=== PATIENT | female | born 1970 | race Caucasian/White ===

== ENCOUNTER → 2018-01-30 10:54 | Outpatient (CLI) | payer BC, SELFPAY ==
[2018-01-30 12:35] LABS: Hematocrit 35.3 % (37-47); Hemoglobin 11.8 g/dl (12.0-15.0); Mean Corp Hgb Conc 33.4 g/gl (32-36); Mean Corpuscular Hgb 31.2 pg (27.0-32.0); Mean Corpuscular Volume 93.4 fL (81-99); Mean Platelet Vol. 11.7 fl (6.2-12.0); Platelet Count 248 K/mm3 (150-450); RBC Distribution Width CV 13.6 % (11.6-14.6); RBC Distribution Width SD 44.3 fl (35.1-43.9); Red Blood Count 3.78 M/mm3 (4.2-5.4); White Blood Count 12.3 K/mm3 (4.4-11.0)
[2018-01-30 12:36] LABS: Scan Indicated on CBC? Y/N NO
[2018-01-30 12:52] LABS: hCG Titer Quant., Serum < 1 mIU/mL (<9 non-preg)
[2018-01-30 12:58] LABS: Free T3 2.3 pg/mL (2.18-3.98); T4 Free Direct 0.69 ng/dL (0.76-1.46)
== END ==
PROVIDERS: Visit Provider Obstetrics & Gynecology
DX: N92.4 Excessive bleeding in the premenopausal period (principal)
CPT/HCPCS: 36415; 84439; 84443; 84481; 84702; 85027

== ENCOUNTER 2018-02-11 05:59 | Day surgery (SDC) | payer BC, SELFPAY ==
[2018-02-11 06:46] VITALS: BP 143/77; PULSE 70; RESP 16; TEMP 36.7; O2SAT 97; BMI 35.1
[2018-02-11 06:56] LABS: Internal QC Validated? YES +Cl - CLEAR BKGD; Pregnancy, Urine Negative Negative
--- NOTE | 2018-02-11 07:24 | PCM.DC.D&C ---
Discharge Diet: No Restrictions Discharge Activity: May not drive while taking narcotic pain medications., May Shower, May Take a Tub Bath Return to work on:: 02/13/18 May resume sexual activity in: 1 week Call your doctor if you observe: Fever of 101 or Higher, Inability to have a bowel movement, Using more than one pad per hour, Uncontrolled pain Allergies/Adverse Reactions: Allergies aspartame Allergy (Verified 02/10/18 15:45) Other MIGRAINES Penicillins [PCN] Allergy (Verified 02/10/18 15:44) Other Medications to take at Discharge Cholecalciferol (Vitamin D3) [Vitamin D3] 2,000 unit PO DAILY 02/10/18 Levothyroxine [Synthroid] 75 mcg PO DAILY 02/10/18 Oxycodone [Oxyir] 5 mg PO Q6H PRN PRN 3 Days #10 tablet 02/11/18 Polyethylene Glycol 3350 [Miralax] 17 gm PO DAILY PRN #14 packet 02/11/18 The following prescriptions were given: Oxycodone [Oxyir] 5 mg PO Q6H PRN PRN 3 Days #10 tablet PRN Reason: Mod-Severe Pain (4-10/10) Polyethylene Glycol 3350 [Miralax] 17 gm PO DAILY PRN #14 packet PRN Reason: Constipation Primary Care Physician: Frida Rebollar DO [Primary Care Provider] - Test Results: Test results from this visit will be discussed in further detail at your follow-up appointment, if applicable. Please Follow Up With: Indu Au MD - [phone] When: in two weeks for postoperative appointment Proposed Discharge Date: 02/11/18
--- NOTE | 2018-02-11 07:28 | DCINST_ITS ---
Discharge Diet: No Restrictions Discharge Activity: May not drive while taking narcotic pain medications., May Shower, May Take a Tub Bath Return to work on:: 02/13/18 May resume sexual activity in: 1 week Call your doctor if you observe: Fever of 101 or Higher, Inability to have a bowel movement, Using more than one pad per hour, Uncontrolled pain Allergies/Adverse Reactions: Allergies aspartame Allergy (Verified 02/10/18 15:45) Other MIGRAINES Penicillins [PCN] Allergy (Verified 02/10/18 15:44) Other Medications to take at Discharge Cholecalciferol (Vitamin D3) [Vitamin D3] 2,000 unit PO DAILY 02/10/18 Levothyroxine [Synthroid] 75 mcg PO DAILY 02/10/18 Oxycodone [Oxyir] 5 mg PO Q6H PRN PRN 3 Days #10 tablet 02/11/18 Polyethylene Glycol 3350 [Miralax] 17 gm PO DAILY PRN #14 packet 02/11/18 The following prescriptions were given: Oxycodone [Oxyir] 5 mg PO Q6H PRN PRN 3 Days #10 tablet PRN Reason: Mod-Severe Pain (4-10/10) Polyethylene Glycol 3350 [Miralax] 17 gm PO DAILY PRN #14 packet PRN Reason: Constipation Primary Care Physician: Frida Rebollar DO [Primary Care Provider] - Test Results: Test results from this visit will be discussed in further detail at your follow- up appointment, if applicable. Please Follow Up With: Indu Au MD - [phone] When: in two weeks for postoperative appointment Proposed Discharge Date: 02/11/18
--- NOTE | 2018-02-11 07:30 | UTC_PTH ---
PATIENT: MARIA DE JESUS SEGURA LOC: [facility] – [place] U#:[id number] AGE/SX: 47/F ROOM: RE02/11/[address]: Dr. Indu Au MD : 1970 BED: DIS: 02/11/2018 SPEC #: [id number] RECD: 02/11/18 08:33 STATUS: ANABELLA TOÑA #: [id number] JUSTIN: 02/11/18 07:[address]: Indu Au DEPT: SURGICAL PATHOLOGY RECD BY: Eileen Garcia ENTERED: 02/11/18 10:23 SP TYPE: DE CUR TIA DR: Dr. Frida Rebollar, DO Tissues: A - Endometrium, NOS B - Uterine cervix, NOS Procedures: Surgery Specimen Level IV HEADER OPERATION: Hysteroscopy, D & C, Symphion, polypectomy PRE-OP DIAGNOSIS: Thickened endometrial stripe TISSUE SUBMITTED: A - Endometrial curettings, B - Uterine curettings - possible polyp MICROSCOPIC DIAGNOSIS A. Endometrial curettings: Simple cystic and focal complex endometrial hyperplasia without atypia. Fragments of benign endocervical mucosa and blood clots. See comment. B. Uterine curettings: Simple cystic and focal complex endometrial hyperplasia without atypia. See comment. SJ:rg 02/12/18 COMMENT A & B. A few fragments consistent with endometrial polyps are also noted. Case has been reviewed in consultation with Dr. Rios who concurs with the above diagnosis. IDC:AM MICROSCOPIC DESCRIPTION Slides are reviewed. GROSS DESCRIPTION A - Received in fixative is one container labeled with the patient's name and designated endometrial curettings. The specimen consists of multiple irregular fragments of wolf hemorrhagic soft tissue mixed with blood clot that in aggregate measure 7.5 x 0.3 x 0.6 cm. The entire specimen is submitted in six cassettes. B - Received in fixative is one container labeled with the patient's name and designated uterine curettings, possible polyp. The specimen consists of multiple irregular fragments of wolf soft tissue mixed with blood clot that in aggregate measure 5 x 3 x 0.3 cm. The specimen is totally submitted in two cassettes. / SRIDHAR:quynh 02/11/18 TC:5 CPT: 73066 x2
[2018-02-11] MEDS: Lubricating Jelly 60 GM Tube 30 GM TOPICAL (07:42)
[2018-02-11 08:19] VITALS: BP 119/90; BP 143/77; PULSE 72; RESP 16; TEMP 36.2; O2SAT 91
[2018-02-11 08:30] VITALS: BP 123/81; BP 143/77; PULSE 73; RESP 16; O2SAT 98
[2018-02-11 08:39] LABS: Bacteria 0 SEEN /hpf (None Seen); Mucous, Urine 0 SEEN /hpf (<or=2+); Squamous Epithelial Cells - UA 0 SEEN /hpf (5-10); White Blood Cells 0 SEEN /hpf (0-5)
[2018-02-11 08:45] VITALS: BP 122/78; BP 143/77; PULSE 71; RESP 14; O2SAT 97
[2018-02-11 09:01] VITALS: BP 127/77; BP 143/77; PULSE 72; RESP 16; O2SAT 95
[2018-02-11 09:09] LABS: Color, Urine Straw (Yellow); Glucose, Dipstick Normal (Normal); Ketone-Dipstick Negative (Negative); Leukocyte Esterase-Dipstick Negative /ul (Negative); Nitrite-Dipstick Negative (Negative); Occult Blood-Urine 10 /ul (Negative); Protein-Dipstick Negative (Negative); Specific Gravity, Urine 1.005 (1.002-1.030); Urine Bilirubin Dipstick Negative (Negative); Urine Clarity Sl. Cloudy (Clear); Urine Urobilinogen Normal (Normal)
[2018-02-11 09:15] LABS: Red Blood Cells-Urine 0-5 SEEN /hpf (0-5)
[2018-02-11] MEDS: Acetaminophen 500 MG Tablet PO (09:25)
[2018-02-11 09:55] VITALS: BP 143/77
--- NOTE | 2018-02-11 12:28 | PCM.OP.BLANK ---
Problem List (1) Menorrhagia, premenopausal Status: Acute (2) Thickened endometrium Status: Acute Operative Report Date of Procedure: 02/11/18 PROCEDURE: Hysteroscopy, Dilation and curettage, Endometrial polypectomy (Symphion) Preoperative Diagnosis: Thickened endometrial stripe on pelvic ultrasound 2.5 cm Menorrhagia Excessive bleeding in premenopause Hypothyroidism Postop diagnosis: Thickened endometrial stripe on pelvic ultrasound 2.5 cm Menorrhagia Excessive bleeding in premenopause Hypothyroidism Anesthesia: General Dr. Carcamo Surgeon: Indu Au MD EBL: Minimal for case, less than 100 cc Drains: Red [place], clear yellow urine. Sent for UA C and S as pt with CC of bloody urine and L back pain preop. Complications: none Fluids: replacement Findings: parous cervix Very fluffy appearing endometrium. D and C required for any visualization Tubal ostia visualized Defect at R uterine fundus cw adenomyosis. Endometrial polyp toward L lower uterine segment. Narrative account After the R,B,Alternatives of the procedure were reviewed with the patient , informed consent was obtained. The patient was taken to the operating room with an IV running and placed in dorsal supine position of the operating table. She was given general anesthesia and repositioned to the dorsal lithotomy position and prepped and draped in the usual sterile fashion. A graves speculum was placed into the vagina and the cervix was brought into view. The cervix was parous appearing and did not require dilation. A single toothed tenaculum was applied to the anterior lip of the cervix. The hysteroscope was inserted through the cervix into the endometrial cavity. There was a very fluffy appearing endometrium and poor visualization. A sharp curettage was performed and tissue removed and set aside for later pathology review. There was loss of fluid around the hysteroscope due to patulous cervix. a second single toothed tenaculum was applied to seal the cervix better. The hysteroscopy was then performed with findings noted as above. There was an endometrial polyp noted. Polypectomy using the Symphion resectoscope was performed, followed by sharp curettage . Multiple pieces of tissue were withdrawn and set aside for later pathology review. The hysteroscope was again inserted and confirmed that the polyp was removed. Both tubal ostia were visualized and the endometrial canal appeared normal then. One final pass was conducted with the sharp curette tip advanced through the cervix to the uterine fundus . Excellent hemostasis was noted. The single toothed tenaculum was removed from the cervix and a RayTec was used to remove any remaining tissue and blood from the upper vagina and cervix. The procedure was terminated. The speculum was removed. The patient was returned to dorsal supine position and awakened from general anesthesia and transferred to her recovery room bed in stable condition after tolerating the procedure well. Sponge, lap, needle and instrument counts were correct x two. For medications given intraoperatively , see the anesthesia record.
== END 2018-02-11 10:00 | disposition home or self-care (01) ==
LOC: SDC 06:00 → AC 06:03
PROVIDERS: Family Provider Internal Medicine; PCP Internal Medicine; Referring Provider Obstetrics & Gynecology; Visit Provider Obstetrics & Gynecology
PROC: 0UB98ZZ Excision of Uterus, Via Natural or Artificial Opening Endoscopic (ICD-10-PCS; CPT 58558; principal; 2018-02-11 07:15)
DX: N85.01 Benign endometrial hyperplasia (principal); N92.4 Excessive bleeding in the premenopausal period; R93.89 Abnormal findings on diagnostic imaging of other specified body structures; E03.9 Hypothyroidism, unspecified; Q61.5 Medullary cystic kidney
CPT/HCPCS: 58558; 81001; 81025; 87086; 88305; J7120; J2405

== ENCOUNTER → 2018-03-11 13:35 | Outpatient (CLI) | payer BC, SELFPAY ==
[2018-03-13 11:59] LABS: HPV Reflexed? NOT INDICATED
== END ==
PROVIDERS: Family Provider Internal Medicine; PCP Internal Medicine; Referring Provider Obstetrics & Gynecology; Visit Provider Obstetrics & Gynecology
DX: Z12.4 Encounter for screening for malignant neoplasm of cervix (principal)
CPT/HCPCS: 88175; G0145

== ENCOUNTER 2018-03-24 10:04 | Day surgery (SDC) | payer BC, SELFPAY ==
[2018-03-11 13:33] LABS: Hematocrit 38.1 % (37-47); Hemoglobin 12.8 g/dl (12.0-15.0); Mean Corp Hgb Conc 33.6 g/gl (32-36); Mean Corpuscular Hgb 31.5 pg (27.0-32.0); Mean Corpuscular Volume 93.8 fL (81-99); Mean Platelet Vol. 11.9 fl (6.2-12.0); Platelet Count 258 K/mm3 (150-450); RBC Distribution Width CV 13.1 % (11.6-14.6); RBC Distribution Width SD 43.4 fl (35.1-43.9); Red Blood Count 4.06 M/mm3 (4.2-5.4); White Blood Count 12.6 K/mm3 (4.4-11.0)
[2018-03-11 13:37] LABS: Scan Indicated on CBC? Y/N NO
[2018-03-11 13:49] LABS: Prothrombin Time (Protime)PT. 12.9 SECONDS (11.7-14.9)
[2018-03-11 13:50] LABS: Partial Thromboplast Time 30.7 Seconds (24.1-36.2)
[2018-03-11 13:53] LABS: Creatinine, Serum 0.72 mg/dL (0.55-1.02); EST Glomerular Filtration Rate 92 mL/min (>60); Est Glom Filt Rate - Afr Amer 112 mL/min (>60)
--- NOTE | 2018-03-23 14:50 | HP.PCM_ITS ---
History and Physical Date of Admission: 03/24/18 Date: 03/11/2018 Name: MARIA DE JESUS SEGURA Age: 47 Date of : 1970 HISTORY OF PRESENT ILLNESS: PT is a 47 yo female, G-8 P-7 here today for her preop appt. PT LMP was approx Nov 2017 and was having continuous bleeding until 2 wks after her D and C done in February. PT denies any other problems or concerns at this time. PT signed consents for surgery. PT is scheduled for LAVH/BS on 03/24/2018. dg -- As above. Had recent hysteroscopy D and C for thickened endometrium and was diagnosed with simple endometrial hyperplasia without atypia and focal complex endometrial hyperplasia without atypia. Reviewed options for treatment at her postop check and elects to proceed with hysterectomy for treatment of this as well as mild uterine prolapse. EB ALLERGIES: Pcn, Does not work MEDICATIONS HISTORY: Current medications prescribed by our practice are: 1. Synthroid 75 mcg tablet, 1 po daily REVIEW OF SYSTEMS: GENERAL - Denies fever, or chills SKIN - Denies skin changes EYES - Denies visual changes EARS - Denies difficulty hearing NOSE - Denies nasal congestion or bleeding MOUTH - Denies sore throat or difficulty swallowing NECK - Denies pain or swelling RESPIRATORY - Denies shortness of breath or wheezing CARDIOVASCULAR - Denies palpitations or chest pain GASTROINTESTINAL - Denies nausea, vomiting, diarrhea, constipation GENITOURINARY - irregular bleeding, clots, cramping MUSCULOSKELETAL - back pain NEUROLOGICAL - Denies localized numbness, weakness, or tingling PSYCHIATRIC - [place], Irritable ENDOCRINE - denies heat or cold intolerance or weight loss or gain HEMATO-IMMUNOLOGIC - Denies excesive bleeding with cuts PAST HISTORY: Breast/Ovarian/Colon Cancers - Denies Infections - CHICKENPOX A CHILD Illnesses - Hypothyroidism Accidents - no injuries of consequence History of Abnormal PAPS - Denies Hospitalizations - Childbirth SURGICAL HISTORY: 1. 02/11/2018 hysteroscopy, D and C, Symphion polypectomy Indu Au M.D. 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 Illicit Drug Use - denies use of street drugs Sexual Activity - Hours Worked - 40 Spouse-Sig Other Name - LUCIA Spouse-Sig Other Occupation - [employer] Children Name(s) - FAIZA, LUCIA, ELIZ, Crystal, ' Paramjit Haque , Tacho Metz 11 Control - condoms PHYSICAL EXAMINATION BP- 118/78 Sitting, Right arm, large cuff Weight- 208.00 lbs Height- 64.75 inch BMI:34.95 CONSTITUTIONAL - NAD, well nourished, and well developed HEENT - Normocephalic, PERRLA, EOMI NECK - no nuchal rigidity LUNGS - clear to auscultation CARDIAC - normal s1, normal s2, no s3 BREAST - no dominant masses, no tenderness, no axillary adenopathy, no nipple discharge and no skin changes ABDOMEN - no masses, no tenderness EXTREMITIES - No edema or calf tenderness NEUROLOGICAL - Cranial nerves II-XII grossly intact PSYCHIATRIC - A and O to time, place, person, mood and affect DETAILED PELVIC EXAM External Genitial Vagina - non-tender without lesions Urethra/Urethral Meatus - non-tender Bladder - non-tender Vagina - vaginal hernandez are pink and moist without loss of rugae and no evidence of atropy Cervix - without cervical motion tenderness and has normal size and features without evident lesions and MINIMAL descent noted. Uterus - 5-6 cm in size, mobile and nontender Adnexa - clear without masses or tenderness Rectal - deferred ASSESSMENT: 1. Benign Endometrial Hyperplasia, Excessive Bleeding In The Premenopausal Pe riod and Neoplasm Of Uncertain Behavior Of Uterus PLAN BY DIAGNOSIS: 1. Benign Endometrial Hyperplasia, Excessive Bleeding In The Premenopausal Period and Neoplasm Of Uncertain Behavior Of Uterus Reviewed path results and operative findings. Advised re options for further treatment. Declined medical management prefers to proceed with hysterectomy. Recommend: LAVH, bilateral salpingectomy. +/- oophorectomy. Reviewed R,B,A of surgery and discussed anticipated preop, operative and postop recovery including activity restrictions. All questions answered to her satisfaction. Consents signed and on chart. Proceed with surgery as scheduled. RTO In 2 wk for postop check up after hysterectomy. The visit was approximately 20 minutes in length with most of the time spent in discussion and counseling.
[2018-03-24] VITALS (9 sets, daily range): BP systolic 110–156; BP diastolic 54–94; PULSE 66–93; RESP 16–18; TEMP 36.2–36.9; O2SAT 94–100; BMI 36.0
[2018-03-24 10:32] LABS: Internal QC Validated? YES +Cl - CLEAR BKGD; Pregnancy, Urine Negative Negative
--- NOTE | 2018-03-24 12:00 | UT_PTH ---
PATIENT: MARIA DE JESUS SEGURA LOC: [facility] – [place] U#:[id number] AGE/SX: 47/F ROOM: RE03/24/[address]: Dr. Indu Au MD : 1970 BED: DIS: 03/25/2018 SPEC #: [id number] RECD: 03/24/18 15:05 STATUS: ANABELLA REHakan #: [id number] JUSTIN: 03/24/18 12:[address]: Indu Au DEPT: SURGICAL PATHOLOGY RECD BY: Dickson Viramontes ENTERED: 03/25/18 10:19 SP TYPE: UTERUS OTHR DR: Dr. Frida Rebollar, Tissues: Uterus, NOS Procedures: Surgery Specimen Level V HEADER OPERATION: Laparoscopic assisted vaginal hysterectomy, bilateral salpingo-oophorectomy PRE-OP DIAGNOSIS: Benign endometrial hyperplasia, excessive bleeding, neoplasm uncertain behavior uterus TISSUE SUBMITTED: Uterus, bilateral fallopian tubes and ovaries MICROSCOPIC DIAGNOSIS Uterus, bilateral tubes and ovaries: Cervix - mild chronic cystic cervicitis with tunnel cluster formation. Endometrium - mildly disordered proliferative endometrium. Myometrium - focal adenomyosis. Bilateral fallopian tubes - no pathologic diagnosis. Bilateral ovaries - physiologic follicular cysts. Paratubal cyst. SJ:quynh 03/26/18 COMMENT Please make reference to previous specimen ([id number]) endometrial curettings and uterine curettings with diagnosis of simple cystic and focal complex hyperplasia without atypia. MICROSCOPIC DESCRIPTION Slides are reviewed. GROSS DESCRIPTION Received in fixative is one container labeled with the patient's name and designated uterus, bilateral fallopian tubes and ovaries. The specimen consists of a hysterectomy specimen in multiple pieces consisting of uterus, cervix, bilateral ovaries and fallopian tubes. The largest piece of uterus shows bilateral attached fallopian tubes and attached one ovary. Also present in the container is a detached second ovary. Pieces of uterus and cervix weigh in aggregate 258 gm. The detached cervix measures 4 x 3.5 x 1.5 cm. Also present in the container is a second piece of cervix consisting of proximal portion of cervix measuring 4 x 4 x 2 cm. The detached pieces of uterus measure in aggregate 14 x 11 x 6 cm. The distal cervix shows focal ectocervical mucosa which appears focally congested. The external os is oval and patulous in contour. The portion endocervical canal in both pieces measures in aggregate 3.5 cm in length and the endocervical mucosa appears unremarkable. The largest piece of uterus measures 11 x 5 x 3.5 cm. Two larger pieces show focal area of endometrial lining. The endometrial cavity in these pieces up to measures 4.5 cm in length and up to 3 cm in width. The endometrium appears focally congested without any mass lesion and 0.1 cm in thickness. Sections of the uterine wall do not reveal any mass lesion. The uterine wall measures up to 4 cm in thickness. One of the fallopian tubes measure 6.5 cm in length and up to 1 cm in diameter. The fimbrial end is identified. The detached ovary measures 3.5 x 2 x 2 cm. Sections reveal a collapsed cyst measuring 1.5 cm in greatest dimension. The second fallopian tube measures 6 cm in length and up to 0.8 cm in diameter. The fimbrial end is identified. A paratubal cyst is noted measuring 3 cm in greatest dimension. The paratubal cyst is filled with clear fluid. The cyst wall is without any papillation. Sections of fallopian tube reveal unremarkable cut surfaces. The adjacent soft to cystic ovary measures 4 x 3 x 2 cm. Sections reveal a hemorrhagic cyst measuring 4.5 cm in greatest dimension. 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 / SRIDHAR:quynh 03/25/18 TC:5 CPT: 08120
--- NOTE | 2018-03-24 12:14 | PCM.DC.VHY ---
Discharge Diet: No Restrictions Discharge Activity: May not drive while taking narcotic pain medications., May Shower, May Take a Tub Bath Return to work on:: 05/11/18 May resume sexual activity in: 4-6 weeks Call your doctor if your incision/area has: Increased Pain/ Swelling, Increased Redness Call your doctor if you observe: Fever of 101 or Higher, Inability to urinate, Inability to have a bowel movement, Using more than one pad per hour Change Dressing in (Days):: 7 Remove Dressing in (days):: 7 Allergies/Adverse Reactions: Allergies aspartame Allergy (Verified 03/18/18 14:06) Other MIGRAINES Penicillins [PCN] Allergy (Verified 03/18/18 14:06) Other Medications to take at Discharge Cholecalciferol (Vitamin D3) [Vitamin D3] 2,000 unit PO DAILY 02/10/18 Levothyroxine [Synthroid] 75 mcg PO DAILY 02/10/18 Polyethylene Glycol 3350 [Miralax] 17 gm PO DAILY PRN #14 packet 02/11/18 Albuterol Sulfate [Proventil Hfa] 2 puff IH Q6H PRN PRN 03/18/18 Budesonide/Formoterol 160/4.5 [Symbicort 160/4.5 Mcg Inhaler (SP)] 2 puff INHALATION BID PRN PRN 03/18/18 Vitamin B Complex 2 each PO DAILY 03/18/18 Docusate Sodium [Colace] 100 mg PO BID #30 capsule 03/24/18 Naproxen [Naprosyn] 250 - 500 mg PO TID PRN PRN #30 tablet 03/24/18 Oxycodone HCl/Acetaminophen [Percocet 5-325] 1 - 2 tablet PO Q6H PRN PRN 7 Days #20 tablet 03/24/18 The following prescriptions were given: Oxycodone HCl/Acetaminophen [Percocet 5-325] 1 - 2 tablet PO Q6H PRN PRN 7 Days #20 tablet PRN Reason: Moderate Pain Naproxen [Naprosyn] 250 - 500 mg PO TID PRN PRN #30 tablet PRN Reason: Mild-Mod Pain (1-5/10) Docusate Sodium [Colace] 100 mg PO BID #30 capsule Primary Care Physician: Frida Rebollar DO [Primary Care Provider] - Test Results: Test results from this visit will be discussed in further detail at your follow-up appointment, if applicable. Please Follow Up With: Indu Au MD - [phone] When: In two weeks for postoperative appointment
--- NOTE | 2018-03-24 12:19 | DCINST_ITS ---
Discharge Diet: No Restrictions Discharge Activity: May not drive while taking narcotic pain medications., May Shower, May Take a Tub Bath Return to work on:: 05/11/18 May resume sexual activity in: 4-6 weeks Call your doctor if your incision/area has: Increased Pain/ Swelling, Increased Redness Call your doctor if you observe: Fever of 101 or Higher, Inability to urinate, Inability to have a bowel movement, Using more than one pad per hour Change Dressing in (Days):: 7 Remove Dressing in (days):: 7 Allergies/Adverse Reactions: Allergies aspartame Allergy (Verified 03/18/18 14:06) Other MIGRAINES Penicillins [PCN] Allergy (Verified 03/18/18 14:06) Other Medications to take at Discharge Cholecalciferol (Vitamin D3) [Vitamin D3] 2,000 unit PO DAILY 02/10/18 Levothyroxine [Synthroid] 75 mcg PO DAILY 02/10/18 Polyethylene Glycol 3350 [Miralax] 17 gm PO DAILY PRN #14 packet 02/11/18 Albuterol Sulfate [Proventil Hfa] 2 puff IH Q6H PRN PRN 03/18/18 Budesonide/Formoterol 160/4.5 [Symbicort 160/4.5 Mcg Inhaler (SP)] 2 puff INHALATION BID PRN PRN 03/18/18 Vitamin B Complex 2 each PO DAILY 03/18/18 Docusate Sodium [Colace] 100 mg PO BID #30 capsule 03/24/18 Naproxen [Naprosyn] 250 - 500 mg PO TID PRN PRN #30 tablet 03/24/18 Oxycodone HCl/Acetaminophen [Percocet 5-325] 1 - 2 tablet PO Q6H PRN PRN 7 Days #20 tablet 03/24/18 The following prescriptions were given: Oxycodone HCl/Acetaminophen [Percocet 5-325] 1 - 2 tablet PO Q6H PRN PRN 7 Days #20 tablet PRN Reason: Moderate Pain Naproxen [Naprosyn] 250 - 500 mg PO TID PRN PRN #30 tablet PRN Reason: Mild-Mod Pain (1-5/10) Docusate Sodium [Colace] 100 mg PO BID #30 capsule Primary Care Physician: Frida Rebollar DO [Primary Care Provider] - Test Results: Test results from this visit will be discussed in further detail at your follow- up appointment, if applicable. Please Follow Up With: Indu Au MD - [phone] When: In two weeks for postoperative appointment
[2018-03-24] MEDS: Bupivacaine 0.5% PF 10 ML VIAL (14:14)
[2018-03-24] MEDS: Lactated Ringers 1,000 ML 125 ML IV (16:11)
[2018-03-24] MEDS: Ondansetron 4 MG/2 ML Vial IV (16:13)
[2018-03-24] MEDS: HYDROmorphone 1 MG/ML Syringe IV (16:13)
[2018-03-24] MEDS: Ketorolac 30 MG/ML Syringe IV ×2 (16:50→22:45)
--- NOTE | 2018-03-24 17:41 | OP.PCM_ITS ---
Operative Report Date of Procedure: 03/24/18 PROCEDURE: Laparoscopic assisted vaginal hysterectomy. Bilateral salpingoophorectomy Preoperative diagnosis: Enlarged uterus. Menorrhagia Endometrial hyperplasia, simple and complex without atypia Excessive bleeding in premenopause, menometrorrhagia Postop diagnosis: Enlarged uterus. Menorrhagia Endometrial hyperplasia, simple and complex without atypia Excessive bleeding in premenopause, menometrorrhagia Anesthesia: General anesthesia, Dr Carcamo Surgeon: Indu Au MD Mobile Lounge Driver Or Operator: OG Flores RN EBL 450 cc Complications: none Drains: Galindo draining clear yellow urine 180 cc for case Fluids: replacement LR Findings: On exam under anesthesia, the cervix appears well supported, parous, patulous. At Laparoscopy: the uterus is globally enlarged and fills the pelvis. There are no significant adhesions in the pelvis. There are normal appearing fallopian tubes bilaterally. The L ovary was adherent to the L pelvic sidewall. The R ovary was enlarged with a simple cyst (aspirated of clear fluid) and there was a R paratubal cyst also noted. PATH: Uterus, bilateral fallopian tubes and ovaries. Narrative account: After the risks, benefits and alternatives of the procedure were reviewed with the patient , informed consent was obtained. The patient was taken to the Operating room with an IV running . She was positioned in the dorsal supine position on the operating table and given general anesthesia. Once asleep she was positioned to the dorsal lithotomy position with the arms tucked at the sides and prepped and draped in the usual sterile fashion. A Galindo catheter was inserted to drain the bladder. The weighted speculum was placed into the vagina and a single tooth tenaculum was placed at the cervix. A Crispin cannula was inserted into the cervix and secured into placed with the single - toothed tenaculum. Attention was then turned to the anterior abdominal wall. the ring cutter lathe operator's gloves were changed and skin incisions were created at the infraumbilical and suprapubic skin and at a point approximately long-term between the suprapubic and infraumbilical skin incisions. Local anesthesia was used to infiltrate the skin where the trocar incision sites were created. A transverse 5 mm infraumbilical skin incision , a transverse 5 mm suprapubic incision and an transverse 5 mm midline incision were created. A Veress needle was inserted in to the peritoneal cavity at the infraumbilical skin incision while maintaining upward traction of the anterior abdominal wall at the umbilicus. There was free drop of saline, free flow of CO2 and low opening pressure noted. Once the intraabdominal pressure had reached approximately 15 mm HG, the Veress needle was removed and a bladeless 5 mm trocar was inserted into the peritoneal cavity. Correct placement was confirmed using the laparoscope. Under direct v isualization the other two 5 mm bladeless trocars were inserted into the peritoneal cavity. The fallopian tubes and ovaries were retracted medially and using a LigaSure device the infundibulopelvic ligament was divided and additional pedicles were taken along both sides of the uterus along the broad ligament. The round ligament was ultimately grasped and divided on each side. At this point the laparoscopic portion of the case was completed. The trocars were left in place, but the instruments were removed and gas turned off. A sterile drape was used to cover the abdomen. Attention was then turned to the vaginal portion of the case. The Crispin cannula was removed and the single toothed tenaculum repositioned on the cervix. The cervical mucosal was then incised circumferentially using Bovie cautery and a knife. The posterior cul de sac was entered by sharp dissection with Deleon scissors and a weighted speculum was placed into the posterior cul se sac. Dissection then was initiated at the anterior cervix to enter the anterior cul se sac. The uterosacral ligaments were clamped bilaterally with curved Kellen clamps and the pedicles divided and suture ligated and tagged for later identification. Next the cardinal ligament was clamped bilaterally and divided and suture ligated. Adequate hemostasis was noted. The very bulbous cervix was then excised and the remaining cervical tissue grasped for orientation with several Leahey tenacula. The anterior cul de sac peritoneum was then entered by sharp dissection and a narrow Geraldine retractor was placed into the anterior cul de sac to retract the bladder out of harm's way for the remainder of the case. The uterine arteries were clamped bilaterally , divided and suture ligated. At this point little descensus was noted due to the enlarged uterus, and morcellation was begun. Each section was removed by using either the knife or a scissors. The cervix and sequential portions of the lower uterine segment anteriorly and posteriorly were removed and set aside. Dissection then continued along each side of the uterus. Each pedicle was secured with a Kellen clamp, divided and suture ligated until ultimately the uterine fundus was reached. The superior pedicles on each side were secured with a curved Kellen clamp and the remaining uterus and attached fallopian tubes (along with a paratubal cyst on the R side) were surgically amputated and set aside. The superior pedicle was then suture ligated, then free tied and tagged for identification. The superior pedicles were dry. There was bleeding noted along the posterior vaginal cuff . The peritoneum was then closed with a running purse string suture of 1 Vicryl, incorporating the superior pedicles and uterosacral ligament tags. Excellent hemostasis was noted. The vaginal cuff was then reapproximated using interrupted and figure of eight stitches of 1 Vicryl. Excellent hemostasis was noted. The Galindo was attached to the Galindo bag. and clear yellow urine returned. A second look was performed with the laparoscope: excellent hemostasis was noted at all pedicles and at the vaginal cuff. Sharmaine was sprayed along the cuff and pedicles for additional hemostasis. The pneumoperitoneum was reduced and all instruments and trocars were removed. The skin incisions were closed with 4-0 Monocryl in a subcuticular fashion. Sterile dressings were applied. (Dermabond and op sites) The patient was returned to dorsal supine position and awakened from general anesthesia. She was then transferred to the recovery room bed in stable condition after tolerating the procedure well. Sponge, lap, needle and instrument counts correct times two. Medications given preop and intraoperatively included: Cefotetan IV given content creation manager to the operating room , 10 cc of Marcaine without epinephrine was used as a subcutaneous injection at the trocar skin incision sites, and Toradol 30 mg IV x one was given. For a complete listing of medications given preop and intraoperatively, please see the anesthesia record.
[2018-03-24] MEDS: Albuterol 2.5 MG/3 ML VIAL.NEB. INHALATION (18:44)
[2018-03-24] MEDS: Budesonide Respules 0.5 MG/2 ML AMPUL.NEB. INHALATION (18:44)
[2018-03-24] MEDS: Acetaminophen 500 MG Tablet 1000 MG PO (20:01)
[2018-03-24] MEDS: oxyCODONE 5 MG Tablet PO (20:02)
[2018-03-25] MEDS: Lactated Ringers 1,000 ML 125 ML IV (01:06)
[2018-03-25 02:00] VITALS: BP 106/59; PULSE 74; RESP 16; TEMP 37.2; O2SAT 94
[2018-03-25] MEDS: Ketorolac 30 MG/ML Syringe IV ×2 (03:21→08:29)
[2018-03-25] MEDS: oxyCODONE 5 MG Tablet PO ×2 (05:55→11:00)
[2018-03-25] MEDS: Levothyroxine 75 MCG Tablet PO (05:56)
[2018-03-25 06:50] VITALS: PULSE 77; RESP 16; O2SAT 95
[2018-03-25] MEDS: Budesonide Respules 0.5 MG/2 ML AMPUL.NEB. INHALATION (06:50)
[2018-03-25] MEDS: Albuterol 2.5 MG/3 ML VIAL.NEB. INHALATION (06:50)
[2018-03-25 06:52] LABS: Hematocrit 30.7 % (37-47); Hemoglobin 10.3 g/dl (12.0-15.0); Mean Corp Hgb Conc 33.6 g/gl (32-36); Mean Corpuscular Hgb 31.8 pg (27.0-32.0); Mean Corpuscular Volume 94.8 fL (81-99); Mean Platelet Vol. 10.8 fl (6.2-12.0); Platelet Count 226 K/mm3 (150-450); RBC Distribution Width CV 12.9 % (11.6-14.6); Red Blood Count 3.24 M/mm3 (4.2-5.4); White Blood Count 15.1 K/mm3 (4.4-11.0)
[2018-03-25 06:56] LABS: Scan Indicated on CBC? Y/N NO
[2018-03-25 07:13] LABS: Creatinine, Serum 0.72 mg/dL (0.55-1.02); EST Glomerular Filtration Rate 92 mL/min (>60); Est Glom Filt Rate - Afr Amer 111 mL/min (>60); Estimated Creatinine Clearance 83.41 ml/min
--- NOTE | 2018-03-25 07:41 | PCM.PN.OB ---
Subjective: POD#1 LAVH, BSO with morcellation of uterus Doing well. Multiple questions about the surgery and findings. Prefers to have meds sent to [facility] as concerned higher cost with outpt pharm here. Will resend RXs. Reviewed surgical findings and criteria for dischg. - Physical Exam General: Alert, Oriented x3, Cooperative, No apparent distress HEENT: Atraumatic Neck: Supple Abdomen: Soft Extremities: - Skin: Incision - L/S incisions CDI. Op sites in place. Neurological: Cranial nerves II-XII grossly intact Psych/Mental Status: Normal Affect Vital Signs Temp Pulse Resp BP Pulse Ox 98.9 F 74 16 106/59 L 94 12//18 02:00 03/25/18 02:00 03/25/18 02:00 12 02:00 03/25/18 02:00 Oxygen Flow Rate (L/min) 2 Oxygen Delivery Method Room Air Weight: 95.254 kg Body Mass Index (BMI) 36.0 Intake and Output for Last 24 Hours 12//18 12/18/18 03/25/18 23:59 23:59 23:59 Intake Total 1896 / 1896 3021 / 3021 Output Total 640 / 640 2400 / 2400 Balance 1256 / 1256 621 / 621 Laboratory Tests Past 24 Hrs 12/18/18 12/19/18 12/18 10:23 06:38 06:38 WBC 15.1 H RBC 3.24 L Hgb 10.3 L Hct 30.7 L MCV 94.8 MCH 31.8 MCHC 33.6 RDW 12.9 RDW Differential 43.0 Plt Count 226 MPV 10.8 Creatinine 0.72 Estim Creat Clear Calc 83.41 Est GFR (MDRD) Af Amer 111 Est GFR (MDRD) Non-Af 92 Urine Test Negative Medical Necessity - Tobacco Use Smoking Status: Never smoker Assessment/Plan All Active Problems Menorrhagia, premenopausal (Acute) Thickened endometrium (Acute) POD#1 LAVH, BSO Stable postop. Hgb as anticipated. Inc diet and activity as tolerated. S/L IV. PO meds. Galindo out for voiding trial. Dischg home today if criteria met.
[2018-03-25 08:23] VITALS: BP 121/63; PULSE 74; RESP 16; TEMP 36.9; O2SAT 98
[2018-03-25] MEDS: 0.9% NaCl Peripheral Flush Adult/Peds IV (08:32)
[2018-03-25] MEDS: Acetaminophen 500 MG Tablet 1000 MG PO (08:32)
--- OUTSIDE RECORDS SUMMARY | 2018-06-25 17:19 | XMS RPT_ITS ---
:1970 Author Organization OHIP Support Name Relationship Address Phone SONIA WALSH Unavailable [address] + [place] [address] COLTON, LUCIA Unavailable [address] + [place] [address] [facility] Unavailable [address] + [place] [address] MADELINE WALSHRIE Unavailable [address] + [place] [address] COLTON, LUCIA Unavailable [address] + [place] [address] [facility] Unavailable [address] + [place] [address] MADELINE WALSHRIE Unavailable [address] + [place] [address] COLTON, LUCIA Unavailable [address] + [place] [address] [facility] Unavailable [address] + [place] [address] SONIA WALSH Unavailable [address] + [place] [address] COLTON, LUCIA Unavailable [address] + [place] [address] [facility] Unavailable [address] + [place] [address] MADELINE WALSHRIE Unavailable [address] + [place] [address] COLTON, LUCIA Unavailable 1981 [facility] [address] + [place] [address] [facility] [place] Unavailable . +. [place] [id number] Care Team Providers Name Role Phone Benekos, Indu Attending Unavailable Benekos, Indu Attending Unavailable Benekos, Indu Attending Unavailable Benekos, Indu Referring Unavailable Keturah, Frida Primary Care Unavailable Benekos, Indu Attending Unavailable Benekos, Indu Referring Unavailable Keturah, Frida Primary Care Unavailable Benekos, Indu Attending Unavailable Benekos, Indu Referring Unavailable Keturah, Frida Primary Care Unavailable PROBLEMS PROBLEMS DATE TYPE CONDITION / CODE ATTENDING STATUS SOURCE 04/06/2018 Unknown E03.9 - Benekos, Indu Active [facility] Hypothyroidism, Community unspecified / Hospital E03.9(ICD-10) Repository 03/25/2018 Unknown R10.9 - Benekos, Indu Active [facility] Unspecified Community abdominal pain / Hospital R10.9(ICD-10) Repository 03/25/2018 Unknown Z90.710 - BenekosIndu Active [place] 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 / Repository Z90.710(ICD-10) 03/11/2018 Unknown Z12.4 - Encounter Indu Au Active [place] for screening for Community malignant Hospital neoplasm of Repository cervix / Z12.4(ICD-10) PROCEDURES PROCEDURES No Procedure Records FoundRESULTS RESULTS CBC-COMPLETE BLOOD CNT Collected: 04/06/2018 Status: F Source: [place] NO DIFF 10:09 AM [facility] REPOSITORY TYPE CODE TESTS RESULT OUT OF RANGE REFERENCE UNITS LAB L100.1000 4.4-11.0 K/mm3 Normal WBC 10.7 LAB L100.1200 4.2-5.4 M/mm3 Low RBC 4.17 LAB L100.1300 12.0-15.0 g/dl Normal HGB 12.8 LAB L100.1400 37-47 % Normal HCT 38.6 LAB L100.1500 81-99 fL Normal MCV 92.6 LAB L100.1600 27.0-32.0 pg Normal MCH 30.7 LAB L100.1700 32-36 g/gl Normal MCHC 33.2 LAB L100.1810 11.6-14.6 % Normal RDW CV 12.5 LAB L100.1820 35.1-43.9 fl Normal RDW SD 41.3 LAB L100.1900 150-450 K/mm3 Normal PLT 409 LAB L100.2000 6.2-12.0 fl Normal MPV 11.0 Performed By: #### L100.0500 #### [facility] [address] [place], [place], [address] THYROID STIM HORMONE Collected: 04/06/2018 Status: F Source: [place] (TSH) 10:09 AM [facility] [place] [place] REPOSITORY TYPE CODE TESTS RESULT OUT OF RANGE REFERENCE UNITS LAB L501.9520 0.358-3.74 uIU/mL Normal TSH 1.28 Performed By: #### L501.9520, L506.0400 #### [facility] [address] [place], [place], [address] T4 FREE DIRECT Collected: 04/06/2018 Status: F Source: [place] 10:09 AM [facility] [place] [place] REPOSITORY TYPE CODE TESTS RESULT OUT OF RANGE REFERENCE UNITS LAB L506.0400 0.76-1.46 ng/dL Normal T4 FREE 1.28 DIRECT Performed By: #### L501.9520, L506.0400 #### [facility] [place], [address] CBC-COMPLETE BLOOD CNT Collected: 03/25/2018 Status: F Source: [place] NO DIFF 6:38 AM [facility] [place] [place] REPOSITORY TYPE CODE TESTS RESULT OUT OF RANGE REFERENCE UNITS LAB L100.1000 4.4-11.0 K/mm3 High WBC 15.1 LAB L100.1200 4.2-5.4 M/mm3 Low RBC 3.24 LAB L100.1300 12.0-15.0 g/dl Low HGB 10.3 LAB L100.1400 37-47 % Low HCT 30.7 LAB L100.1500 81-99 fL Normal MCV 94.8 LAB L100.1600 27.0-32.0 pg Normal MCH 31.8 LAB L100.1700 32-36 g/gl Normal MCHC 33.6 LAB L100.1810 11.6-14.6 % Normal RDW CV 12.9 LAB L100.1820 35.1-43.9 fl Normal RDW SD 43.0 LAB L100.1900 150-450 K/mm3 Normal PLT 226 LAB L100.2000 6.2-12.0 fl Normal MPV 10.8 Performed By: #### L100.0500 #### [facility] [address] [place], [address] SERUM CREATININE AND Collected: 03/25/2018 Status: F Source: [place] GFR 6:38 AM [facility] [place] [place] REPOSITORY TYPE CODE TESTS RESULT OUT OF RANGE REFERENCE UNITS LAB L501.1100 0.55-1.02 mg/dL Normal 0.72 CREAT,SERUM Result Comment: The validity of the calculated GFR AND GFRAA in patients over 70 years has not been determined. Clinical correlation is essential. LAB L501.1110 >60 mL/min Normal EST GFR 92 Result Comment: Non- GFR Calc LAB L501.1115 >60 mL/min Normal EST GFR - AA 111 Result Comment: GFR Calc LAB L501.1255 ml/min Normal Estimated CRCL 83.41 Performed By: #### L501.1105 #### [facility] [address] [place], [address] OPERATIVE REPORT Observed: 03/24/2018 Status: F Source: [place] 5:42 PM [facility] [place] [place] REPOSITORY [facility] Medical Records Department [address] [place] [address] Operative Report 03/24/18 1726 MR#: [id number] Acct: [id number] Name: MARIA DE JESUS SEGURA Rep #: [id number] : 1970 47 From: Indu Au MD PCP: Frida Rebollar DO Status: [facility] Y Location: [place] [address] Operative Report Date of Procedure: 03/24/18 PROCEDURE: Laparoscopic assisted vaginal hysterectomy. Bilateral salpingoophorectomy Preoperative diagnosis: Enlarged uterus. Menorrhagia Endometrial hyperplasia, simple and complex without atypia Excessive bleeding in premenopause, menometrorrhagia Postop diagnosis: Enlarged uterus. Menorrhagia Endometrial hyperplasia, simple and complex without atypia Excessive bleeding in premenopause, menometrorrhagia Anesthesia: General anesthesia, Dr Carcamo Surgeon: Indu Au MD Web Operations Manager: OG Flores, RN EBL 450 cc Complications: none Drains: Galindo draining clear yellow urine 180 cc for case Fluids: replacement LR Findings: On exam under anesthesia, the cervix appears well supported, parous, patulous. At Laparoscopy: the uterus is globally enlarged and fills the pelvis. There are no significant adhesions in the pelvis. There are normal appearing fallopian tubes bilaterally. The L ovary was adherent to the L pelvic sidewall. The R ovary was enlarged with a simple cyst (aspirated of clear fluid) and there was a R paratubal cyst also noted. PATH: Uterus, bilateral fallopian tubes and ovaries. Narrative account: After the risks, benefits and alternatives of the procedure were reviewed with the patient , informed consent was obtained. The patient was taken to the Operating room with an IV running . She was positioned in the dorsal supine position on the operating table and given general anesthesia. Once asleep she was positioned to the dorsal lithotomy position with the arms tucked at the sides and prepped and draped in the usual sterile fashion. A Galindo catheter was inserted to drain the bladder. The weighted speculum was placed into the vagina and a single tooth tenaculum was placed at the cervix. A Crispin cannula was inserted into the cervix and secured into placed with the single - toothed tenaculum. Attention was then turned to the anterior abdominal wall. the concrete batch plant operator's gloves were changed and skin incisions were created at the infraumbilical and suprapubic skin and at a point approximately prison between the suprapubic and infraumbilical skin incisions. Local anesthesia was used to infiltrate the skin where the trocar incision sites were created. A transverse 5 mm infraumbilical skin incision , a transverse 5 mm suprapubic incision and an transverse 5 mm midline incision were created. A Veress needle was inserted in to the peritoneal cavity at the infraumbilical skin incision while maintaining upward traction of the anterior abdominal wall at the umbilicus. There was free drop of saline, free flow of CO2 and low opening pressure noted. Once the intraabdominal pressure had reached approximately 15 mm HG, the Veress needle was removed and a bladeless 5 mm trocar was inserted into the peritoneal cavity. Correct placement was confirmed using the laparoscope. Under direct visualization the other two 5 mm bladeless trocars were inserted into the peritoneal cavity. The fallopian tubes and ovaries were retracted medially and using a LigaSure device the infundibulopelvic ligament was divided and additional pedicles were taken along both sides of the uterus along the broad ligament. The round ligament was ultimately grasped and divided on each side. At this point the laparoscopic portion of the case was completed. The trocars were left in place, but the instruments were removed and gas turned off. A sterile drape was used to cover the abdomen. Attention was then turned to the vaginal portion of the case. The Crispin cannula was removed and the single toothed tenaculum repositioned on the cervix. The cervical mucosal was then incised circumferentially using Bovie cautery and a knife. The posterior cul de sac was entered by sharp dissection with Deleon scissors and a weighted speculum was placed into the posterior cul se sac. Dissection then was initiated at the anterior cervix to enter the anterior cul se sac. The uterosacral ligaments were clamped bilaterally with curved Kellen clamps and the pedicles divided and suture ligated and tagged for later identification. Next the cardinal ligament was clamped bilaterally and divided and suture ligated. Adequate hemostasis was noted. The very bulbous cervix was then excised and the remaining cervical tissue grasped for orientation with several Leahey tenacula. The anterior cul de sac peritoneum was then entered by sharp dissection and a narrow Flint retractor was placed into the anterior cul de sac to retract the bladder out of harm's way for the remainder of the case. The uterine arteries were clamped bilaterally , divided and suture ligated. At this point little descensus was noted due to the enlarged uterus, and morcellation was begun. Each section was removed by using either the knife or a scissors. The cervix and sequential portions of the lower uterine segment anteriorly and posteriorly were removed and set aside. Dissection then continued along each side of the uterus. Each pedicle was secured with a Kellen clamp, divided and suture ligated until ultimately the uterine fundus was reached. The superior pedicles on each side were secured with a curved Kellen clamp and the remaining uterus and attached fallopian tubes (along with a paratubal cyst on the R side) were surgically amputated and set aside. The superior pedicle was then suture ligated, then free tied and tagged for identification. The superior pedicles were dry. There was bleeding noted along the posterior vaginal cuff . The peritoneum was then closed with a running purse string suture of 1 Vicryl, incorporating the superior pedicles and uterosacral ligament tags. Excellent hemostasis was noted. The vaginal cuff was then reapproximated using interrupted and figure of eight stitches of 1 Vicryl. Excellent hemostasis was noted. The Galindo was attached to the Galindo bag. and clear yellow urine returned. A second look was performed with the laparoscope: excellent hemostasis was noted at all pedicles and at the vaginal cuff. Sharmaine was sprayed along the cuff and pedicles for additional hemostasis. The pneumoperitoneum was reduced and all instruments and trocars were removed. The skin incisions were closed with 4-0 Monocryl in a subcuticular fashion. Sterile dressings were applied. (Dermabond and op sites) The patient was returned to dorsal supine position and awakened from general anesthesia. She was then transferred to the recovery room bed in stable condition after tolerating the procedure well. Sponge, lap, needle and instrument counts correct times two. Medications given preop and intraoperatively included: Cefotetan IV given outside salesperson to the operating room , 10 cc of Marcaine without epinephrine was used as a subcutaneous injection at the trocar skin incision sites, and Toradol 30 mg IV x one was given. For a complete listing of medications given preop and intraoperatively, please see the anesthesia record. 03/24/18 1742 <Electronically signed by Indu Au MD> Date Indu Au MD CC: Indu Au MD; Frida Rebollar DO Signed DISCHARGE INSTRUCTION Observed: 03/24/2018 Status: F Source: [place] 12:20 PM [facility] [place] [place] REPOSITORY [facility] Medical Records Department [address] [place] [address] Instructions for Home/Discharge Instructions 03/24/18 1214 MR#: [id number] Acct: [id number] Name: MARIA DE JESUS SEGURA Rep #: [id number] : 1970 47 From: Indu Au MD PCP: Frida Rebollar DO Status: REG GAC Discharge Diet: No Restrictions Discharge Activity: May not drive while taking narcotic pain medications., May Shower, May Take a Tub Bath Return to work on:: 05/11/18 May resume sexual activity in: 4-6 weeks Call your doctor if your incision/area has: Increased Pain/ Swelling, Increased Redness Call your doctor if you observe: Fever of 101 or Higher, Inability to urinate, Inability to have a bowel movement, Using more than one pad per hour Change Dressing in (Days):: 7 Remove Dressing in (days):: 7 Allergies/Adverse Reactions: Allergies aspartame Allergy (Verified 03/18/18 14:06) Other MIGRAINES Penicillins [PCN] Allergy (Verified 03/18/18 14:06) Other Medications to take at Discharge Cholecalciferol (Vitamin D3) [Vitamin D3] 2,000 unit PO DAILY 02/10/18 Levothyroxine [Synthroid] 75 mcg PO DAILY 02/10/18 Polyethylene Glycol 3350 [Miralax] 17 gm PO DAILY PRN #14 packet 02/11/18 Albuterol Sulfate [Proventil Hfa] 2 puff IH Q6H PRN PRN 03/18/18 Budesonide/Formoterol 160/4.5 [Symbicort 160/4.5 Mcg Inhaler (SP)] 2 puff INHALATION BID PRN PRN 03/18/18 Vitamin B Complex 2 each PO DAILY 03/18/18 Docusate Sodium [Colace] 100 mg PO BID #30 capsule 03/24/18 Naproxen [Naprosyn] 250 - 500 mg PO TID PRN PRN #30 tablet 03/24/18 Oxycodone HCl/Acetaminophen [Percocet 5-325] 1 - 2 tablet PO Q6H PRN PRN 7 Days #20 tablet 03/24/18 The following prescriptions were given: Oxycodone HCl/Acetaminophen [Percocet 5-325] 1 - 2 tablet PO Q6H PRN PRN 7 Days #20 tablet PRN Reason: Moderate Pain Naproxen [Naprosyn] 250 - 500 mg PO TID PRN PRN #30 tablet PRN Reason: Mild-Mod Pain (1-510) Docusate Sodium [Colace] 100 mg PO BID #30 capsule Primary Care Physician: Frida Rebollar DO [Primary Care Provider] - Test Results: Test results from this visit will be discussed in further detail at your follow-up appointment, if applicable. Please Follow Up With: Indu Au MD - [phone] When: In two weeks for postoperative appointment 03/24/18 1220 <Electronically signed by Indu Au MD> Date Indu Au MD CC: Frida Rebollar DO HISTORY AND PHYSICAL Observed: 03/24/2018 Status: F Source: [place] EXAM 12:06 PM [facility] [place] [place] REPOSITORY [facility] Medical Records Department [address] [place] [address] History and Physical 03/23/18 1448 MR#: [id number] Acct: [id number] Name: MARIA DE JESUS SEGURA Rep #: [id number] : 1970 47 From: Indu Au MD PCP: Frida Rebollar DO Status: REG SD Y Location: [place] [address] ADDENDUM by Indu Au MD on 03/24/18 at 1206 Code Visit Patient now wants ovaries removed also. States still bleeding and had to wear a pad in to hospital. Discussion re HRT/ERT: concerned she gets myers with changes of hormones and asking initally about ERT. Seems she wants. Then with further concerns re risks associated (reviewed [facility] studies with risks of clot, stroke, NC, breast cancer all total inc risk of 32 cases/30,000 women ... elects then for removal of both ovaries and does NOT want to start on ERT immediately. Consent amended to : KENYA ARMSTRONG. Proceed to surgery as planned. 03/24/18 1206 <Electronically signed by Indu Au MD> Date Indu Au MD cc: Indu Au MD; Frida Rebollar DO * Signed History and Physical Date of Admission: 03/24/18 Date: 03/11/2018 Name: MARIA DE JESUS SEGURA Age: 47 Date of : 1970 HISTORY OF PRESENT ILLNESS: PT is a 47 yo female, G-8 P-7 here today for her preop appt. PT LMP was approx Nov 2017 and was having continuous bleeding until 2 wks after her D and C done in February. PT denies any other problems or concerns at this time. PT signed consents for surgery. PT is scheduled for LAVH/BS on 03/24/2018. dg -- As above. Had recent hysteroscopy D and C for thickened endometrium and was diagnosed with simple endometrial hyperplasia without atypia and focal complex endometrial hyperplasia without atypia. Reviewed options for treatment at her postop check and elects to proceed with hysterectomy for treatment of this as well as mild uterine prolapse. EB ALLERGIES: Pcn, Does not work MEDICATIONS HISTORY: Current medications prescribed by our practice are: 1. Synthroid 75 mcg tablet, 1 po daily REVIEW OF SYSTEMS: GENERAL - Denies fever, or chills SKIN - Denies skin changes EYES - Denies visual changes EARS - Denies difficulty hearing NOSE - Denies nasal congestion or bleeding MOUTH - Denies sore throat or difficulty swallowing NECK - Denies pain or swelling RESPIRATORY - Denies shortness of breath or wheezing CARDIOVASCULAR - Denies palpitations or chest pain GASTROINTESTINAL - Denies nausea, vomiting, diarrhea, constipation GENITOURINARY - irregular bleeding, clots, cramping MUSCULOSKELETAL - back pain NEUROLOGICAL - Denies localized numbness, weakness, or tingling PSYCHIATRIC - Myers, Irritable ENDOCRINE - denies heat or cold intolerance or weight loss or gain HEMATO-IMMUNOLOGIC - Denies excesive bleeding with cuts PAST HISTORY: Breast/Ovarian/Colon Cancers - Denies Infections - CHICKENPOX A CHILD Illnesses - Hypothyroidism Accidents - no injuries of consequence History of Abnormal PAPS - Denies Hospitalizations - Childbirth SURGICAL HISTORY: 1. 02/11/2018 hysteroscopy, D and C, Symphion polypectomy Indu Au M.D. 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 Illicit Drug Use - denies use of street drugs Sexual Activity - Hours Worked - 40 Spouse-Sig Other Name - LUCIA Spouse-Sig Other Occupation - [employer] Children Name(s) - FAIZA, LUCIA, ELIZ, ' Crystal, '03 Paramjit Haque '07, Tacho Metz 11' EB Control - condoms PHYSICAL EXAMINATION BP- 118/78 Sitting, Right arm, large cuff Weight- 208.00 lbs Height- 64.75 inch BMI:34.95 CONSTITUTIONAL - NAD, well nourished, and well developed HEENT - Normocephalic, PERRLA, EOMI NECK - no nuchal rigidity LUNGS - clear to auscultation CARDIAC - normal s1, normal s2, no s3 BREAST - no dominant masses, no tenderness, no axillary adenopathy, no nipple discharge and no skin changes ABDOMEN - no masses, no tenderness EXTREMITIES - No edema or calf tenderness NEUROLOGICAL - Cranial nerves II-XII grossly intact PSYCHIATRIC - A and O to time, place, person, mood and affect DETAILED PELVIC EXAM External Genitial Vagina - non-tender without lesions Urethra/Urethral Meatus - non-tender Bladder - non-tender Vagina - vaginal hernandez are pink and moist without loss of rugae and no evidence of atropy Cervix - without cervical motion tenderness and has normal size and features without evident lesions and MINIMAL descent noted. Uterus - 5-6 cm in size, mobile and nontender Adnexa - clear without masses or tenderness Rectal - deferred ASSESSMENT: 1. Benign Endometrial Hyperplasia, Excessive Bleeding In The Premenopausal Period and Neoplasm Of Uncertain Behavior Of Uterus PLAN BY DIAGNOSIS: 1. Benign Endometrial Hyperplasia, Excessive Bleeding In The Premenopausal Period and Neoplasm Of Uncertain Behavior Of Uterus Reviewed path results and operative findings. Advised re options for further treatment. Declined medical management prefers to proceed with hysterectomy. Recommend: LAVH, bilateral salpingectomy. +/- oophorectomy. Reviewed R,B,A of surgery and discussed anticipated preop, operative and postop recovery including activity restrictions. All questions answered to her satisfaction. Consents signed and on chart. Proceed with surgery as scheduled. RTO In 2 wk for postop check up after hysterectomy. The visit was approximately 20 minutes in length with most of the time spent in discussion and counseling. 03/23/18 1450 <Electronically signed by Indu Au MD> Date Indu Au MD Cosigner Signature: Date (if applicable) CC: Indu Au MD; Frida Rebollar DO Signed UTERUS Observed: 03/24/2018 Status: F Source: [place] 12:00 PM [facility] [place] [place] REPOSITORY Patient: MARIA DE JESUS SEGURA : 1970 (47/F) Acct Num: [id number] Phys: Indu Au MD Unit Num: [id number] Loc: [facility] Specimen: [id number] Received: 03/24/181504 Spec Type: UTERUS TISSUES 1 TISSUES: Uterus, NOS COMMENT Please make reference to previous specimen ([id number]) endometrial curettings and uterine curettings with diagnosis of simple cystic and focal complex hyperplasia without atypia. GROSS DESCRIPTION Received in fixative is one container labeled with the patient's name and designated uterus, bilateral fallopian tubes and ovaries. The specimen consists of a hysterectomy specimen in multiple pieces consisting of uterus, cervix, bilateral ovaries and fallopian tubes. The largest piece of uterus shows bilateral attached fallopian tubes and attached one ovary. Also present in the container is a detached second ovary. Pieces of uterus and cervix weigh in aggregate 258 gm. The detached cervix measures 4 x 3.5 x 1.5 cm. Also present in the container is a second piece of cervix consisting of proximal portion of cervix measuring 4 x 4 x 2 cm. The detached pieces of uterus measure in aggregate 14 x 11 x 6 cm. The distal cervix shows focal ectocervical mucosa which appears focally congested. The external os is oval and patulous in contour. The portion endocervical canal in both pieces measures in aggregate 3.5 cm in length and the endocervical mucosa appears unremarkable. The largest piece of uterus measures 11 x 5 x 3.5 cm. Two larger pieces show focal area of endometrial lining. The endometrial cavity in these pieces up to measures 4.5 cm in length and up to 3 cm in width. The endometrium appears focally congested without any mass lesion and 0.1 cm in thickness. Sections of the uterine wall do not reveal any mass lesion. The uterine wall measures up to 4 cm in thickness. One of the fallopian tubes measure 6.5 cm in length and up to 1 cm in diameter. The fimbrial end is identified. The detached ovary measures 3.5 x 2 x 2 cm. Sections reveal a collapsed cyst measuring 1.5 cm in greatest dimension. The second fallopian tube measures 6 cm in length and up to 0.8 cm in diameter. The fimbrial end is identified. A paratubal cyst is noted measuring 3 cm in greatest dimension. The paratubal cyst is filled with clear fluid. The cyst wall is without any papillation. Sections of fallopian tube reveal unremarkable cut surfaces. The adjacent soft to cystic ovary measures 4 x 3 x 2 cm. Sections reveal a hemorrhagic cyst measuring 4.5 cm in greatest dimension. Geomorphology Teacher sections are submitted in 13 cassettes as follows: 1 AND 2 - cervix, 3-8 - uterine wall including endometrium, entire endometrium is submitted, 9 - one fallopian tube, 10 - detached ovary, 11- 13 - second fallopian tube and adjacent ovary (11 - fallopian tube, 12 AND 13 - ovary). / SRIDHAR:quynh TC:5 CPT: 44663 HEADER OPERATION: Laparoscopic assisted vaginal hysterectomy, bilateral salpingo- oophorectomy PRE-OP DIAGNOSIS: Benign endometrial hyperplasia, excessive bleeding, neoplasm uncertain behavior uterus TISSUE SUBMITTED: Uterus, bilateral fallopian tubes and ovaries MICROSCOPIC DESCRIPTION Slides are reviewed. MICROSCOPIC DIAGNOSIS Uterus, bilateral tubes and ovaries: Cervix - mild chronic cystic cervicitis with tunnel cluster formation. Endometrium - mildly disordered proliferative endometrium. Myometrium - focal adenomyosis. Bilateral fallopian tubes - no pathologic diagnosis. Bilateral ovaries - physiologic follicular cysts. Paratubal cyst. SRIDHAR:quynh 03/26/18 Signed Sincere Colón MD 03/26/18 <signature on file> Performed By: #### PUT #### [facility] [address] [place], [address] ,URINE Collected: 03/24/2018 Status: F Source: NAHUNTA 10:23 AM [facility] [place], [place] REPOSITORY Order Comment: Reason for Laboratory Test PRE OP TYPE CODE TESTS RESULT OUT OF REFERENCE UNITS RANGE LAB L400.8000 Negative Normal HCGUQUAL Negative Result Comment: Very dilute urine specimens, as indicated by a low specific gravity, may not contain front office representative levels of hCG. If is still suspected, a first morning urine specimen should be collected 48 hours later and tested. Performed By: #### L400.7600 #### [facility] [address] [place], [address] TYPE AND SCREEN Collected: 03/11/2018 Status: F Source: NAHUNTA 12:21 PM [facility] [place], [place] REPOSITORY Order Comment: Surgery Date: 03/24/18 Hx of Preganancy in last 3 Months No Ever experience any problems with transfusion(s)? N Hx of Transfusion in last 3 Months N Reason for Type AND Screen/Red Cells: SURGERY SURGICAL PROCEDURE: LAVH TYPE CODE TESTS RESULT OUT OF RANGE REFERENCE UNITS LAB B10.0800 O Normal BLOOD TYPE GEL POSITIVE LAB B100.4000 Normal Antibody NEGATIVE Screen Performed By: #### B101.7475 #### [facility] [address] [place], [address] CBC-COMPLETE BLOOD CNT Collected: 03/11/2018 Status: F Source: ALEJO NO DIFF 12:16 PM [facility] [place] [place] REPOSITORY TYPE CODE TESTS RESULT OUT OF RANGE REFERENCE UNITS LAB L100.1000 4.4-11.0 K/mm3 High WBC 12.6 LAB L100.1200 4.2-5.4 M/mm3 Low RBC 4.06 LAB L100.1300 12.0-15.0 g/dl Normal HGB 12.8 LAB L100.1400 37-47 % Normal HCT 38.1 LAB L100.1500 81-99 fL Normal MCV 93.8 LAB L100.1600 27.0-32.0 pg Normal MCH 31.5 LAB L100.1700 32-36 g/gl Normal MCHC 33.6 LAB L100.1810 11.6-14.6 % Normal RDW CV 13.1 LAB L100.1820 35.1-43.9 fl Normal RDW SD 43.4 LAB L100.1900 150-450 K/mm3 Normal PLT 258 LAB L100.2000 6.2-12.0 fl Normal MPV 11.9 Performed By: #### L100.0500 #### [facility] [address] [place], [address] SERUM CREATININE AND Collected: 03/11/2018 Status: F Source: NAHUNTA GFR 12:16 PM [facility] [place] [place] REPOSITORY TYPE CODE TESTS RESULT OUT OF RANGE REFERENCE UNITS LAB L501.1100 0.55-1.02 mg/dL Normal 0.72 CREAT,SERUM Result Comment: The validity of the calculated GFR AND GFRAA in patients over 70 years has not been determined. Clinical correlation is essential. LAB L501.1110 >60 mL/min Normal EST GFR 92 Result Comment: Non- GFR Calc LAB L501.1115 >60 mL/min Normal EST GFR - AA 112 Result Comment: GFR Calc Performed By: #### L501.1105 #### [facility] [address] [place], [address] PROTHROMBIN TIME W/INR Collected: 03/11/2018 Status: F Source: NAHUNTA 12:16 PM [facility] [place] [place] REPOSITORY TYPE CODE TESTS RESULT OUT OF RANGE REFERENCE UNITS LAB L300.4150 11.7-14.9 SECONDS Normal PROTIME 12.9 LAB L300.4200 Normal INR 1.0 Performed By: #### L300.3900, L300.4310 #### [facility] [address] [place], [address] PARTIAL THROMBOPLAST Collected: 03/11/2018 Status: F Source: NAHUNTA TIME 12:16 PM [facility] [place] [place] REPOSITORY TYPE CODE TESTS RESULT OUT OF RANGE REFERENCE UNITS LAB L300.4310 24.1-36.2 Seconds Normal PTT 30.7 Performed By: #### L300.3900, L300.4310 #### [facility] [address] [place], [address] PAP I-G W/RFX HRHPV Collected: 03/11/2018 Status: F Source: ALEJO 11:15 AM [facility] [place] [place] REPOSITORY Order Comment: CYTOLOGY INFORMATION: - CLINICAL INFORMATION: - DATE LMP/MENOPAUSE: 11/2017 LMP - COLLECTION VIAL: Thin Prep Vial - HOSPITALITY SERVICES MANAGER SOURCE: CERVICAL/ENDOCERVICAL - COLLECTION TECHNIQUE: BRUSH/SPATULA Specimen Comment: [id number] Specimen Comment: Source.............Cervix;Endocervix Specimen Comment: Dates / Results....LMP:11/2017 Specimen Comment: No. of containers..01 ThinPrep Vial TYPE CODE TESTS RESULT OUT OF RANGE REFERENCE UNITS LAB L7400.0800 . Normal DIAGN Comment Result Comment: NEGATIVE FOR INTRAEPITHELIAL LESION AND MALIGNANCY. LAB L7400.0900 . Normal ADEQ Comment Result Comment: Satisfactory for evaluation. Endocervical and/or squamous metaplastic cells (endocervical component) are present. LAB L7400.1400 . Normal PERFORM Comment Result Comment: Geno Alatorre, Staffing Specialist LAB L7400.2575 . Normal TEST METHOD Comment Result Comment: This liquid based ThinPrep(R) pap test was screened with the use of an image guided system. LAB L7400.2600 . Normal . COMM LAB L7400.2700 . Normal PAPSMR Comment Result Comment: The Pap smear is a screening test designed to aid in the detection of premalignant and malignant conditions of the uterine cervix. It is not a diagnostic procedure and should not be used as the sole means of detecting cervical cancer. Both false-positive and false-negative reports do occur. LAB L7400.2800 . Normal HPV RFLX Comment Result Comment: The HPV DNA reflex criteria were not met with this specimen result therefore, no HPV testing was performed. Performed at: [address] [place] [id number] [place] Operator: Amanda Alvarado MD, Phone: [phone] Performed By: #### L7400.0350 #### [facility] (refer to report for specific site) refer to report for address and phone number OPERATIVE REPORT Observed: 02/11/2018 Status: F Source: ALEJO 12:40 PM [facility] [place] [place] REPOSITORY [facility] Medical Records Department [address] [place] [address] Operative Report 02/11/18 1228 MR#: [id number] Acct: [id number] Name: MARIA DE JESUS SEGURA Rep #: [id number] : 1970 47 From: Indu Au MD PCP: Frida Rebollar DO Status: DEP [facility] Y Location: [facility] Problem List (1) Menorrhagia, premenopausal Status: Acute (2) Thickened endometrium Status: Acute Operative Report Date of Procedure: 02/11/18 PROCEDURE: Hysteroscopy, Dilation and curettage, Endometrial polypectomy (Symphion) Preoperative Diagnosis: Thickened endometrial stripe on pelvic ultrasound 2.5 cm Menorrhagia Excessive bleeding in premenopause Hypothyroidism Postop diagnosis: Thickened endometrial stripe on pelvic ultrasound 2.5 cm Menorrhagia Excessive bleeding in premenopause Hypothyroidism Anesthesia: General Dr. Carcamo Surgeon: Indu Au MD EBL: Minimal for case, less than 100 cc Drains: Red [place], clear yellow urine. Sent for UA C and S as pt with CC of bloody urine and L back pain preop. Complications: none Fluids: replacement Findings: parous cervix Very fluffy appearing endometrium. D and C required for any visualization Tubal ostia visualized Defect at R uterine fundus cw adenomyosis. Endometrial polyp toward L lower uterine segment. Narrative account After the R,B,Alternatives of the procedure were reviewed with the patient , informed consent was obtained. The patient was taken to the operating room with an IV running and placed in dorsal supine position of the operating table. She was given general anesthesia and repositioned to the dorsal lithotomy position and prepped and draped in the usual sterile fashion. A graves speculum was placed into the vagina and the cervix was brought into view. The cervix was parous appearing and did not require dilation. A single toothed tenaculum was applied to the anterior lip of the cervix. The hysteroscope was inserted through the cervix into the endometrial cavity. There was a very fluffy appearing endometrium and poor visualization. A sharp curettage was performed and tissue removed and set aside for later pathology review. There was loss of fluid around the hysteroscope due to patulous cervix. a second single toothed tenaculum was applied to seal the cervix better. The hysteroscopy was then performed with findings noted as above. There was an endometrial polyp noted. Polypectomy using the Symphion resectoscope was performed, followed by sharp curettage . Multiple pieces of tissue were withdrawn and set aside for later pathology review. The hysteroscope was again inserted and confirmed that the polyp was removed. Both tubal ostia were visualized and the endometrial canal appeared normal then. One final pass was conducted with the sharp curette tip advanced through the cervix to the uterine fundus . Excellent hemostasis was noted. The single toothed tenaculum was removed from the cervix and a RayTec was used to remove any remaining tissue and blood from the upper vagina and cervix. The procedure was terminated. The speculum was removed. The patient was returned to dorsal supine position and awakened from general anesthesia and transferred to her recovery room bed in stable condition after tolerating the procedure well. Sponge, lap, needle and instrument counts were correct x two. For medications given intraoperatively , see the anesthesia record. 02/11/18 1240 <Electronically signed by Indu Au MD> Date Indu Au MD CC: Indu Au MD; Frida Rebollar DO Signed URINALYSIS, COMPLETE Collected: 02/11/2018 Status: F Source: ALEJO 8:30 AM [facility] [place] [place] REPOSITORY Order Comment: Has pt arrived? Y Comments: URINE FOR UA/ C AND S- PT ST CATH FOR SPECIMEN How was Urine Obtained? CATHETER SPECIMEN TYPE CODE TESTS RESULT OUT OF RANGE REFERENCE UNITS LAB L400.3000 Yellow COLOR Normal Straw LAB L400.3050 Clear Normal CLARITY Sl. Cloudy LAB L400.3200 Normal mg/dl Normal GLUCOSE, UR Normal LAB L400.3300 Negative mg/dL Normal BILIRUBIN URINE Negative LAB L400.3400 Negative mg/dl Normal KETONE UR Negative LAB L400.3465 1.002-1.030 Normal SP.GR. DIPSTX 1.005 LAB L400.3550 5.0 - 8.0 pH UR Normal 6.0 LAB L400.3600 Negative mg/dl PROT Normal DIPSTX Negative LAB L400.3700 Normal mg/dl Normal UROBILI Normal LAB L400.3750 Negative Normal NITRITE UR Negative LAB L400.3780 Negative /ul High 10 OCCULT BLOOD-UR LAB L400.3800 Negative /ul LEUK Normal ESTERASE Negative LAB L400.4050 0-5 /hpf WBC 0 Normal SEEN LAB L400.4100 0-5 /hpf Normal RBC-UA 0-5 SEEN LAB L400.4150 5-10 /hpf SQUAM 0 Normal EPI SEEN LAB L400.4300 None Seen /hpf 0 Normal BACTERIA SEEN LAB L400.4350 <or=2+ /hpf 0 Normal MUCUS, URINE SEEN Performed By: #### L400.0001 #### [facility] [address] [place], [place], [address] Observed: 02/11/2018 Status: F Source: NAHUNTA CULTURE, URINE 8:30 AM [facility] [place] [place] REPOSITORY Comments: URINE FOR UA/C AND S- PT ST CATH FOR SPECIMEN Has pt arrived? Y Urine Culture Culture exhibits no growth. Performed By: #### M100.0650 #### [facility] [address] [place], [address] UTERINE CURETTINGS Observed: 02/11/2018 Status: F Source: ALEJO 7:30 AM [facility] [place] [place] REPOSITORY Patient: MARIA DE JESUS SEGURA : 1970 (47/F) Acct Num: [id number] Phys: Indu Au MD Unit Num: [id number] Loc: [facility] Specimen: [id number] Received: 02/11/18832 Spec Type: [facility] TISSUES 1 TISSUES: A. Endometrium, NOS B. Uterine cervix, NOS COMMENT A AND B. A few fragments consistent with endometrial polyps are also noted. Case has been reviewed in consultation with Dr. Rios who concurs with the above diagnosis. IDC:AM GROSS DESCRIPTION A - Received in fixative is one container labeled with the patient's name and designated endometrial curettings. The specimen consists of multiple irregular fragments of wolf hemorrhagic soft tissue mixed with blood clot that in aggregate measure 7.5 x 0.3 x 0.6 cm. The entire specimen is submitted in six cassettes. B - Received in fixative is one container labeled with the patient's name and designated uterine curettings, possible polyp. The specimen consists of multiple irregular fragments of wolf soft tissue mixed with blood clot that in aggregate measure 5 x 3 x 0.3 cm. The specimen is totally submitted in two cassettes. / SRIDHAR:quynh 02/11/18 TC:5 CPT: 52045 x2 HEADER OPERATION: Hysteroscopy, D AND C, Symphion, polypectomy PRE-OP DIAGNOSIS: Thickened endometrial stripe TISSUE SUBMITTED: A - Endometrial curettings, B - Uterine curettings - possible polyp MICROSCOPIC DESCRIPTION Slides are reviewed. MICROSCOPIC DIAGNOSIS A. Endometrial curettings: Simple cystic and focal complex endometrial hyperplasia without atypia. Fragments of benign endocervical mucosa and blood clots. See comment. B. Uterine curettings: Simple cystic and focal complex endometrial hyperplasia without atypia. See comment. Dashawn 02/12/18 Signed Sincere Colón 02/12/18 <signature on file> Performed By: #### PUTC #### [facility] [address] [place], [address] DISCHARGE INSTRUCTION Observed: 02/11/2018 Status: F Source: NAHUNTA 7:28 AM [facility] [place] [place] REPOSITORY [facility] Medical Records Department [address] [place] [address] Instructions for Home/Discharge Instructions 02/11/18 0724 MR#: [id number] Acct: [id number] Name: MARIA DE JESUS SEGURA Rep #: [id number] : 1970 47 From: Indu Au MD PCP: Frida Rebollar DO Status: REG [facility] Discharge Diet: No Restrictions Discharge Activity: May not drive while taking narcotic pain medications., May Shower, May Take a Tub Bath Return to work on:: 02/13/18 May resume sexual activity in: 1 week Call your doctor if you observe: Fever of 101 or Higher, Inability to have a bowel movement, Using more than one pad per hour, Uncontrolled pain Allergies/Adverse Reactions: Allergies aspartame Allergy (Verified 02/10/18 15:45) Other MIGRAINES Penicillins [PCN] Allergy (Verified 02/10/18 15:44) Other Medications to take at Discharge Cholecalciferol (Vitamin D3) [Vitamin D3] 2,000 unit PO DAILY 02/10/18 Levothyroxine [Synthroid] 75 mcg PO DAILY 02/10/18 Oxycodone [Oxyir] 5 mg PO Q6H PRN PRN 3 Days #10 tablet 02/11/18 Polyethylene Glycol 3350 [Miralax] 17 gm PO DAILY PRN #14 packet 02/11/18 The following prescriptions were given: Oxycodone [Oxyir] 5 mg PO Q6H PRN PRN 3 Days #10 tablet PRN Reason: Mod-Severe Pain (4-01/14) Polyethylene Glycol 3350 [Miralax] 17 gm PO DAILY PRN #14 packet PRN Reason: Constipation Primary Care Physician: Frida Rebollar DO [Primary Care Provider] - Test Results: Test results from this visit will be discussed in further detail at your follow-up appointment, if applicable. Please Follow Up With: Indu Au MD - [phone] When: in two weeks for postoperative appointment Proposed Discharge Date: 02/11/18 02/11/18727 <Electronically signed by Indu Au MD> Date Indu Au MD CC: Frida Rebollar DO ,URINE Collected: 02/11/2018 Status: F Source: ALEJO 6:17 AM [facility] [place] [place] REPOSITORY Order Comment: Comments: stat TYPE CODE TESTS RESULT OUT OF REFERENCE UNITS RANGE LAB L400.8000 Negative Normal HCGUQUAL Negative Result Comment: Very dilute urine specimens, as indicated by a low specific gravity, may not contain front office representative levels of hCG. If is still suspected, a first morning urine specimen should be collected 48 hours later and tested. Performed By: #### L400.7600 #### [facility] [address] [place], [address] CBC-COMPLETE BLOOD CNT Collected: 01/30/2018 Status: F Source: ALEJO NO DIFF 11:04 AM [facility] [place] [place] REPOSITORY TYPE CODE TESTS RESULT OUT OF RANGE REFERENCE UNITS LAB L100.1000 4.4-11.0 K/mm3 High WBC 12.3 LAB L100.1200 4.2-5.4 M/mm3 Low RBC 3.78 LAB L100.1300 12.0-15.0 g/dl Low HGB 11.8 LAB L100.1400 37-47 % Low HCT 35.3 LAB L100.1500 81-99 fL Normal MCV 93.4 LAB L100.1600 27.0-32.0 pg Normal MCH 31.2 LAB L100.1700 32-36 g/gl Normal MCHC 33.4 LAB L100.1810 11.6-14.6 % Normal RDW CV 13.6 LAB L100.1820 35.1-43.9 fl High RDW SD 44.3 LAB L100.1900 150-450 K/mm3 Normal PLT 248 LAB L100.2000 6.2-12.0 fl Normal MPV 11.7 Performed By: #### L100.0500 #### [facility] [address] [place], [place], [address] HCG TITER QUANT., Collected: 01/30/2018 Status: F Source: ALEJO SERUM 11:04 AM [facility] [place] [place] REPOSITORY TYPE CODE TESTS RESULT OUT OF RANGE REFERENCE UNITS LAB L700.8000 <9 non-preg mIU/mL Normal HCG < 1 QUANT. Performed By: #### L700.8000 #### [facility] [address] [place], [place], [address] FREE T3 Collected: 01/30/2018 Status: F Source: ALEJO 11:04 AM [facility] [place] [place] REPOSITORY TYPE CODE TESTS RESULT OUT OF RANGE REFERENCE UNITS LAB L501.76037 2.18-3.98 pg/mL Normal FREE T3 2.3 Performed By: #### L501.96154, L501.9520, L506.0400 #### [facility] [address] [place], [address] THYROID STIM HORMONE Collected: 01/30/2018 Status: F Source: ALEJO (TSH) 11:04 AM [facility] [place] [place] REPOSITORY TYPE CODE TESTS RESULT OUT OF RANGE REFERENCE UNITS LAB L501.9520 0.358-3.74 uIU/mL High TSH 13.20 Performed By: #### L501.33399, L501.9520, L506.0400 #### [facility] [address] [place], [address] T4 FREE DIRECT Collected: 01/30/2018 Status: F Source: ALEJO 11:04 AM [facility] [place] [place] REPOSITORY TYPE CODE TESTS RESULT OUT OF REFERENCE UNITS RANGE LAB L506.0400 0.76-1.46 ng/dL Low T4 FREE 0.69 DIRECT Performed By: #### L501.02404, L501.9520, L506.0400 #### [facility] [address] [place], [address] ALLERGIES ALLERGIES DATE TYPE / CODE NAME / CODE REACTION SEVERITY SOURCE 03/18/2018 Drug Penicillins/ Other Unknown [facility] Allergy/4160 [id number](R Hospital 85023(SNOMED XNORM) Repository CT) 03/18/2018 Drug aspartame/F0 Other Unknown [facility] Allergy/4160 [id number](RX Hospital 54546(SNOMED ORM) Repository CT) ENCOUNTERS ENCOUNTERS ADMIT/DISCHARGE ACCOUNT ADMITTING ENCOUNTER LOCATION SOURCE NUMBER CLASS 04/06/2018 [id number] Ambulatory [place] [facility] ing:WOBLAB Repository 03/24/2018/ [id number] Ambulatory [place] 8 5 [facility] ing:SDCRoom: Repository MS210 03/11/2018 [id number] Ambulatory [place] 4 [facility] ing:LABSPEC Repository 02/11/2018/ [id number] Ambulatory [place] 8 3 [facility] ing:SDCRoom: Repository AC01 01/30/2018 [id number] Ambulatory [place] 7 [facility] ing:WOBLAB Repository PAYERS PAYERS ENCOUNTER GUARANTOR PAYER SUBSCRIBER SOURCE 04/06/2018 LUCIA BISHOPI1982 Primary LUCIA M MAKIDOB: [place] Insurance:ANTHEMPolic [id number] [address], y Number: [facility] [address]Zbs: [id number] Repository Date:[id number] [address]OX () [address] [address]NX: 04/06/2018 Secondary NOT GIVENUNK [place] Insurance:SELF PAY [facility]: Effective Repository Date:2018-04-06 03/24/2018 LUCIA BISHOPI1982 Primary LUCIA LUCIOB: [place] Insurance:ANTHEMPolic [id number] [address], y Number: [facility] [address]Ijb: [id number] Repository Date:[id number] [address]OX () [address], [place] [address]RR: 03/24/2018 Secondary NOT GIVENUNK [place] Insurance:SELF PAY [facility] Number: Effective Repository Date:2018-03-03 03/11/2018 LUCIA BISHOPI1982 Primary LUCIA LUCIOB: [place] Insurance:ANTHEMPolic [id number] [address], y Number: [facility] [address]Fre: [id number] Repository Date:[id number] [address]OX () [address] [address]RL: 03/11/2018 Secondary NOT GIVENUNK [place] Insurance:SELF PAY Community [facility] Number: Effective Repository Date:2018-03-11 02/11/2018 LUCIA Tello [id number] Primary LUCIA LUCIOB: [place] Insurance:ANTHEMPolic [id number] [address], y Number: [facility] [address]Xfa: [id number] Repository Date:[id number] [address]OX () [address] [address]AX: 02/11/2018 Secondary NOT GIVENUNK [place] Insurance:SELF PAY [facility] Number: Effective Repository Date:2018-02-03 01/30/2018 LUCIA Tello [id number] Primary LUCIA LUCIOB: [place] TR Insurance:ANTHEMPolic [id number] [address] Number: [facility] [address]Utf: [id number] Repository Date:[id number], [place] [address]LL: 01/30/2018 Secondary NOT GIVENUNK [place] Insurance:SELF PAY [facility] Number: Effective Repository Date:2018-01-30
== END 2018-03-25 12:24 | disposition home or self-care (01) ==
LOC: SDC 10:05 → AC 10:08 → MS2 11:35
PROVIDERS: Anesthesiology; Family Provider Internal Medicine; PCP Internal Medicine; Referring Provider Obstetrics & Gynecology; Visit Provider Obstetrics & Gynecology
PROC: 0UT9FZZ Resection of Uterus, Via Natural or Artificial Opening With Percutaneous Endoscopic Assistance (ICD-10-PCS; CPT 58552; principal; 2018-03-24 11:35)
DX: N80.0 Endometriosis of uterus (principal); N72 Inflammatory disease of cervix uteri; N83.02 Follicular cyst of left ovary; N83.01 Follicular cyst of right ovary; N83.8 Other noninflammatory disorders of ovary, fallopian tube and broad ligament; N92.1 Excessive and frequent menstruation with irregular cycle; N92.4 Excessive bleeding in the premenopausal period; E03.9 Hypothyroidism, unspecified; J45.909 Unspecified asthma, uncomplicated; Z79.899 Other long term (current) drug therapy
CPT/HCPCS: 58552; 36415; 81025; 82565; 85027; 85610; 85730; 86850; 86900; 88307; 94640; J7120; A4216; J2405

== ENCOUNTER → 2018-04-06 10:05 | Outpatient (CLI) | payer BC, SELFPAY ==
[2018-03-24 15:59] VITALS: BMI 36.0
[2018-04-06 10:59] LABS: Hematocrit 38.6 % (37-47); Hemoglobin 12.8 g/dl (12.0-15.0); Mean Corp Hgb Conc 33.2 g/gl (32-36); Mean Corpuscular Hgb 30.7 pg (27.0-32.0); Mean Corpuscular Volume 92.6 fL (81-99); Platelet Count 409 K/mm3 (150-450); RBC Distribution Width CV 12.5 % (11.6-14.6); RBC Distribution Width SD 41.3 fl (35.1-43.9); Red Blood Count 4.17 M/mm3 (4.2-5.4); White Blood Count 10.7 K/mm3 (4.4-11.0)
[2018-04-06 11:00] LABS: Scan Indicated on CBC? Y/N NO
[2018-04-06 11:52] LABS: T4 Free Direct 1.28 ng/dL (0.76-1.46); Thyroid Stim Hormone (TSH) 1.28 uIU/mL (0.358-3.74)
== END ==
PROVIDERS: Visit Provider Obstetrics & Gynecology
DX: E03.9 Hypothyroidism, unspecified (principal)
CPT/HCPCS: 36415; 84439; 84443; 85027

== ENCOUNTER 2019-02-06 12:22 | Emergency (ER) | payer OTHER, BC, SELFPAY ==
[2018-03-24 15:59] VITALS: BMI 36.0
[2019-02-06 12:23] VITALS: BP 161/96; PULSE 73; RESP 16; TEMP 36.3; BMI 36.8
--- NOTE | 2019-02-06 12:52 | RAD_ITS ---
STUDY: X-RAY - RIGHT RADIUS AND ULNA REASON FOR EXAM: Female, 48 years old. Injury. TECHNIQUE: 2 view(s) of the forearm. COMPARISON: None. FINDINGS: There is no demonstrated soft tissue swelling. Normal visualized radius. Normal visualized ulna. There is no demonstrated acute fracture. RAD/Forearm 2 Views IMPRESSION: Normal x-ray examination of the radius and ulna. Electronically Signed: Oscar Chavira MD at 13:24 EDT , Service support ,
--- NOTE | 2019-02-06 12:52 | RAD_ITS ---
STUDY: X-RAY - RIGHT HAND REASON FOR EXAM: Female, 48 years old. Pain. TECHNIQUE: 3 view(s) of the hand. COMPARISON: None. FINDINGS: Normal radiocarpal articulation. Normal distal radioulnar joint. Normal visualized carpal bones. Normal carpal articulations Normal carpometacarpal articulation of the thumb. Normal second through fifth carpometacarpal joints. Normal metacarpi. Normal metacarpophalangeal joint of the thumb. Normal interphalangeal joint of the thumb. Normal proximal and distal phalanges of the thumb. Normal metacarpophalangeal joints of the second through fifth fingers. Normal proximal and distal interphalangeal joints of the second through fifth fingers. Normal phalanges of the second through fifth fingers. The soft tissue structures are unremarkable. RAD/Hand Min 3 Views IMPRESSION: Normal x-ray examination of the hand. Electronically Signed: Oscar Chavira MD at 13:26 EDT , Service support ,
--- NOTE | 2019-02-06 12:53 | ED.VIS.GEN ---
History of Present Illness Chief Complaint: Upper Extremity Injury Detail of Chief Complaint: Right hand and arm pain Informant: Patient Onset: Yesterday Context: Sudden Onset Current Severity: Moderate Maximum Severity: Moderate Narrative: Patient presents today following an right arm injury. 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 She states she went to pull her right hand out from underneath the patient and felt a pop in her right wrist area. She has pain and swelling around the thenar eminence of her right hand as well as pain just distal to her right elbow. She has decreased range of motion secondary to pain. She has no paresthesias. Past Medical History - Allergies and Home Meds Allergies/Adverse Reactions: Allergies aspartame Allergy (Verified 02/06/19 12:23) Other MIGRAINES Penicillins [PCN] Allergy (Verified 02/06/19 12:23) Other Primary Care Physician: Marta Aragon MD [Primary Care Provider] - Prior records reviewed: Yes Past Medical History: - - Reviewed Lives: With Family Smoking Status: Never smoker Review of Systems General: Denies: Chills, Fever Eyes: Denies: Visual changes - bilaterally ENT: Denies: Bilateral ear pain Cardiovascular: Denies: Chest pain Respiratory: Denies: Dyspnea, Cough Gastrointestinal: Denies: Abdominal pain, Nausea, Vomiting, Diarrhea Genitourinary: Denies: Dysuria Musculoskeletal: Reports: Arthralgias, Swelling, Extremity Pain Skin: Denies: Rash, Wounds Neurological: Denies: Parasthesia Hematologic: Denies: Easy bruising, Easy bleeding Physical Exam Vital Signs/Narrative: Vital Signs Temp Pulse Resp BP 02/06/19 12:23 97.3 F L 73 16 161/96 H Inital Vital Signs reviewed: Yes General: Well nourished, Well developed Head: Normocephalic ENT: Moist mucous membranes Neck: Supple Cardiovascular: Regular rate, Regular rhythm Respiratory: No distress Abdomen: Soft, Nontender Extremities: - - Tenderness palpation and edema noted around the thenar eminence of the right hand. Mild tenderness along the proximal right forearm. No deformity noted. She is able to flex and extend at the wrist but has pain with doing so. Normal cap refill is noted and normal sensation. Neurological: Alert, Oriented x3 Psychological: Normal affect Diagnostic/Tx/Re-eval Impressions Forearm X-Ray 02/06/19 12:52 IMPRESSION: Normal x-ray examination of the radius and ulna. Electronically Signed: Oscar Chavira MD at 13:24 EDT , Service support , Hand X-Ray 02/06/19 12:52 IMPRESSION: Normal x-ray examination of the hand. Electronically Signed: Oscar Chavira MD at 13:26 EDT , Service support , 02/06/19 12:52 Forearm 2 Views [RAD] Stat Hand Min 3 Views [RAD] Stat - Medical Decision Making Patient was given 1 tab of [place] for pain. On my review of the x-rays it does appear there is a an avulsion fracture over the distal carpals. This correlates with her area of most intense pain and swelling. Patient is placed in AP Ortho-Glass splint. Following splint application she can wiggle fingers. She will follow-up with corporate care and I will also recommend follow-up with hand surgery. Procedures - Upper Extremity Splints Upper Extremity Splint: Orthoglass, - - AP splint Splint Fabrication: Fabricated Location: Right ED Disposition - Plan for ED Patient: Disposition: Home or Assisted Living Diagnosis: Avulsion fracture of right wrist Instructions: FRACTURE, Upper Extremity Prescriptions: Hydrocodone Bitart/Apap 5-325 [[place] 5MG-325MG] 1 tablet PO Q6H PRN PRN 3 Days #10 tablet PRN Reason: Pain Referrals: [facility] [GROUP OF PHYSICIANS] -
[2019-02-06] MEDS: HYDROcodone Bitartrate/Apap 5/325 Tablet PO (13:58)
== END 2019-02-06 14:15 | disposition home or self-care (01) ==
PROVIDERS: Emergency Provider Emergency Medicine; Family Provider Internal Medicine; PCP Internal Medicine
DX: S62.101A Fracture of unspecified carpal bone, right wrist, initial encounter for closed fracture (principal); X58.XXXA Exposure to other specified factors, initial encounter; Y93.F9 Activity, other caregiving; Y92.9 Unspecified place or not applicable; Y99.0 Civilian activity done for income or pay
CPT/HCPCS: 29125; 73090; 73130; 99283